=== PATIENT | male | born 1960 | race Caucasian/White ===

== ENCOUNTER 2018-12-03 13:42 | Emergency (ER) | payer SELFPAY ==
[2018-12-03] MEDS ORDERED: HYDROcodone/ACETAMIN 5-325 MG* 1 TAB PO ONE (14:48)
[2018-12-03] MEDS ORDERED: Ketorolac INJ* 60 MG/2 ML VIAL IM ONE (14:48)
--- NOTE | 2018-12-03 14:58 | ED ---
Back Pain - HPI Summary HPI Summary: Patient presents with acute on chronic back pain x 2 days. He reports he's had lower back pain for many years however after coughing recently, he developed acute worsening of pain that wraps around his back and into both of his thighs. He denies numbness, tingling or weakness as well as change in bowel or bladder habits. He tried ibuprofen as well as a friend's [place] without relief. Pain is worse with transitioning from sitting to standing and standing back to sitting. He has never had imaging of his back. Lives with an 80 year-old man who takes care of and denies any recent injury as a result of this activity. No other sx reported. 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 Pain Intensity: 6 - Allergies/Home Medications Allergies/Adverse Reactions: Allergies Allergy/AdvReac Type Severity Reaction Status Date / Time No Known Allergies Allergy Verified 12/03/18 13:58 PMH/Surg Hx/FS Hx/Imm Hx Previously Healthy: Yes Endocrine/Hematology History: Denies: Hx Anticoagulant Therapy, Hx Blood Disorders Musculoskeletal History: Reports: Hx Back Problems - chronic of unknown origin - told he had sciatica in the past Infectious Disease History: No Infectious Disease History: Denies: Traveled Outside the [place] in Last 30 Days - Social History 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 man Alcohol Use: Weekly Alcohol Amount: 1-2 times weekly to help w/ back pain Hx Substance Use: No Substance Use Type: Reports: None Hx Tobacco Use: Yes Smoking Status (MU): Heavy Every Day Tobacco Smoker Amount Used/How Often: >1 PPD Review of Systems Constitutional: Negative Gastrointestinal: Negative Positive: no symptoms reported Positive: Arthralgia Skin: Negative Neurological: Negative Psychological: Normal All Other Systems Reviewed And Are Negative: Yes Physical Exam Triage Information Reviewed: Yes Vital Signs On Initial Exam: Initial Vitals Temp Pulse Resp BP Pulse Ox 98.6 F 105 16 124/99 97 12/03/18 13:55 12/03/18 13:55 12/03/18 13:55 12/03/18 13:55 12/03/18 13:55 Vital Signs Reviewed: Yes Appearance: Positive: Pain Distress, Thin - partially unkempt Skin: Positive: Warm, Skin Color Reflects Adequate Perfusion, Dry Head/Face: Positive: Normal Head/Face Inspection Eyes: Positive: EOMI, Conjunctiva Clear ENT: Positive: Hearing grossly normal, Pharynx normal - mucosa moist Dental: Positive: Other - edentulous Respiratory/Lung Sounds: Positive: Breath Sounds Present Cardiovascular: Positive: Pulses are Symmetrical in both Upper and Lower Extremities. Negative: Leg Edema Left, Leg Edema Right Musculoskeletal: Positive: Strength/ROM Intact - LE's intact, Other - slow and appears to be in pain transitioning from sitting in chair to standing - uses a homemade cane to transition and ambulate. Negative: Edema Left, Edema Right Neurological: Positive: Normal, Sensory/Motor Intact, Alert, Oriented to Person Place, Time, CN Intact II-III. Negative: Other - saddle paresthesia Psychiatric: Positive: Normal - calm, pleasant, polite - [place] Coma Scale Best Eye Response: 4 - Spontaneous Best Motor Response: 6 - Obeys Commands Best Verbal Response: 5 - Oriented Coma Scale Total: 15 Diagnostics - Vital Signs Vital Signs Temp Pulse Resp BP Pulse Ox 12/03/18 13:55 98.6 F 105 16 124/99 97 - Laboratory Lab Statement: Any lab studies that have been ordered have been reviewed, and results considered in the medical decision making process. Re-Evaluation - Re-Evaluation First Eval Change: Improved - Pt able to transition easier - wants to go Back Pain Course/Dx - Course Course Of Treatment: XR: lumbar DDD. Provided with toradol, norco and prednisone. Will d/c w/ same. Advised close f/u w/ PCP and return if danger s/ sx present. Pt agrees w/ plan. - Diagnoses Provider Diagnoses: DDD (degenerative disc disease), lumbar Discharge - Sign-Out/Discharge Documenting (check all that apply): Patient Departure - Discharge Plan Condition: Stable Disposition: HOME Prescriptions: HYDROcodone/ACETAMIN 5-325 MG* [[place] 5-325 TAB*] 1 tab PO Q6H PRN #12 tab MDD 4 PRN Reason: Pain Ibuprofen TAB* [Motrin TAB* 600 MG] 600 mg PO Q6H PRN #20 tab PRN Reason: Pain predniSONE TAB* [Deltasone 20 MG TAB*] 40 mg PO DAILY #8 tab Patient Education Materials: Lumbar Radiculopathy (ED), Degenerative Disc Disease (ED) Referrals: [facility] [Outside] Additional Instructions: Take medications as directed Follow-up with PCP this week - call [facility] Wednesday to schedule appointment - if you are unable to schedule at [facility], go to [facility]: [id number] [place] [address] *If you develop numbness, tingling, weakness, change in bowel/bladder habits, return to the ED - Billing Disposition and Condition Condition: STABLE Disposition: Home
[2018-12-03] MEDS ORDERED: predniSONE TAB* 20 MG PO ONE (15:51)
[2018-12-03 16:56] VITALS: BP 131/80
== END 2018-12-03 16:54 | disposition home or self-care (01) ==
LOC: ED 13:42
DX: M54.9 Dorsalgia, unspecified (principal); G89.29 Other chronic pain; M51.36 Other intervertebral disc degeneration, lumbar region; F17.210 Nicotine dependence, cigarettes, uncomplicated
CPT/HCPCS: 72110; 96372; 99282; J1885; J7512